=== PATIENT | male | born 1955 ===

== ENCOUNTER 2017-01-13 10:41 | Emergency (ER) | payer SELFPAY ==
[2017-01-13 11:20] VITALS: BP 139/63
[2017-01-13] MEDS ORDERED: Ondansetron ODT TAB* 4 MG PO ONE (11:52)
[2017-01-13] MEDS ORDERED: Omeprazole CAP* 20 MG PO ONE (11:53)
--- NOTE | 2017-01-13 12:00 | UC ---
UC General HPI - HPI Summary HPI Summary: Patient is recovering from a viral respiratory illness, has had 5 days of GI upset, not able to eat, dry heaves, and "just a sour stomach" denies any Vomiting or diarrhea. denies any blood in stool or with dry heaves. daily baby ASA use, smoker. no HX of GI bleed. - History of Current Complaint Chief Complaint: UCAbdominalPain Stated Complaint: HEAD/STOMACH PAIN Time Seen by Provider: 01/13/17 11:33 Hx Obtained From: Patient Onset/Duration: Sudden Onset, Lasting Days Timing: Constant Onset Severity: Mild Current Severity: Moderate Associated Signs & Symptoms: Positive: Abdominal Pain, Decreased Oral Intake Related Hx: Recent Illness - Allergy/Home Medications Allergies/Adverse Reactions: Allergies Allergy/AdvReac Type Severity Reaction Status Date / Time No Known Allergies Allergy Verified 01/13/17 11:20 Home Medications: Home Medications Amlodipine Besylate [Norvasc 10 mg tab] 10 mg PO DAILY 01/13/17 [History Confirmed 01/13/17] Aspirin Or Other [employer] Med 250 mg PO DAILY PRN 01/13/17 [History Confirmed 01/13/17] Aspirin [Aspirin 81 MG TAB] 81 mg PO QAM 01/13/17 [History Confirmed 01/13/17] Lisinopril/HCTZ 20/25(NF) [Zestoretic 20/(NF)] 1 tab PO DAILY 01/13/17 [ History Confirmed 01/13/17] PMH/Surg Hx/FS Hx/Imm Hx Previously Healthy: Yes Cardiovascular History Of: Reports: Hypertension - Surgical History Surgical History: None - Family History Known Family History: Positive: Hypertension - Social History Alcohol Use: Weekly Alcohol Amount: 12-14 Substance Use Type: None Smoking Status (MU): Heavy Every Day Tobacco Smoker Review of Systems Constitutional: Fatigue Skin: Negative Eyes: Negative ENT: Negative Respiratory: Negative Cardiovascular: Negative Gastrointestinal: Abdominal Pain Genitourinary: Negative Motor: Negative Neurovascular: Negative Musculoskeletal: Negative Neurological: Negative Psychological: Negative All Other Systems Reviewed And Are Negative: Yes Physical Exam Triage Information Reviewed: Yes Appearance: Well-Nourished, Ill-Appearing, Pain Distress Vital Signs: Initial Vital Signs Temp 98.6 F 01/13/17 11:08 Pulse 106 01/13/17 11:08 Resp 18 01/13/17 11:08 BP 139/63 04/11/17 11:08 Pulse Ox 98 01/13/17 11:08 Vital Signs Reviewed: Yes Eye Exam: Normal Eyes: Positive: Conjunctiva Clear ENT: Positive: Hearing grossly normal, Pharynx normal, Pharyngeal erythema, TMs normal Dental: Positive: Gross Decay/Caries @ Neck exam: Normal Neck: Positive: Supple, Nontender, No Lymphadenopathy Respiratory Exam: Normal Respiratory: Positive: Chest non-tender, Lungs clear, Normal breath sounds Cardiovascular Exam: Normal Cardiovascular: Positive: No Murmur, Pulses Normal, Tachycardia Abdominal Exam: Normal Abdomen Description: Positive: Nontender, No Organomegaly, Soft, CVA Tenderness (R) - neg, CVA Tenderness (L) - neg, Other: - no organomegaly no masses palpated , no rebound tenderness, Bowel Sounds: Positive: Hypoactive Musculoskeletal Exam: Normal Musculoskeletal: Positive: Strength Intact, ROM Intact, No Edema Neurological Exam: Normal Neurological: Positive: Alert, Muscle Tone Normal Psychological Exam: Normal Skin: Positive: Other - psoriatic leasions on abdomen and arms Course/Dx - Course Course Of Treatment: hx obtained, exam performed, meds reviewed, UA pos for Ketones, but patients food and fluid intake has been decreased for the past 5 days. Given omeprazole and zofran, prescribed the same. Treated for gastritis, recommend follow up with PCP kimberly if not better with treatment or finishes the week of omeprazole and pain comes back, may need R/O ulcer. - Differential Dx - Multi-Symptom Provider Diagnoses: gastritis Discharge - Discharge Plan Condition: Stable Disposition: HOME Prescriptions: Omeprazole CAP* [Prilosec CAP* 20 MG] 20 mg PO DAILY #7 cap. Ondansetron ODT TAB* [Zofran 4 MG Odt TAB*] 4 mg PO Q8H PRN #21 tab.odt PRN Reason: Nausea Patient Education Materials: Gastritis (ED) Additional Instructions: take the medications as prescribed. If you are not getting relief I recommend that you follow up with your doctor. If you are responding well to the medication but symptoms come back after it is completed please follow up at that time as well.
== END 2017-01-13 12:15 | disposition home or self-care (01) ==
LOC: UCCORT 10:41
DX: K29.70 Gastritis, unspecified, without bleeding (principal); K02.9 Dental caries, unspecified; I10 Essential (primary) hypertension; F17.210 Nicotine dependence, cigarettes, uncomplicated
CPT/HCPCS: 81003; 99212; A9270-GY; G0463